=== PATIENT | male | born 1985 | race Caucasian/White ===

== ENCOUNTER 2020-04-30 14:08 | Emergency (ER) | payer BC, MEDICARE ==
[~2020-04-30] VITALS: Ht 172.7 cm; Wt 80.0 kg
[~2020-04-30 14:08] MED LIST: ALBU18HF2 INH; ASPI-611 PO; BECL7.3A INH; CETI-90 PO; GABA-532 PO; HYDR25CA PO; HYDR25TA4 PO; SERT50TA PO; TRAZ-251 PO
== END 2020-04-30 15:11 | disposition home or self-care (01) ==
LOC: ER 14:09
DX: S50.00XA Contusion of unspecified elbow, initial encounter (principal); I10 Essential (primary) hypertension; J45.909 Unspecified asthma, uncomplicated; K21.9 Gastro-esophageal reflux disease without esophagitis; Z91.81 History of falling; Z88.2 Allergy status to sulfonamides; Z91.030 Bee allergy status; Z79.82 Long term (current) use of aspirin; Z79.899 Other long term (current) drug therapy; W19.XXXA Unspecified fall, initial encounter; Y93.89 Activity, other specified; Y92.89 Other specified places as the place of occurrence of the external cause; Y99.8 Other external cause status
CPT/HCPCS: 73080; 73090; 99284

== ENCOUNTER 2022-03-28 09:43 | Emergency (ER) | payer BC, MEDICARE, MEDICAID ==
[~2022-03-28] VITALS: Ht 172.7 cm; Wt 85.5 kg
[2022-03-28 10:29] VITALS: BP 154/104
== END 2022-03-28 14:03 | disposition home or self-care (01) ==
LOC: ER 09:43
DX: H92.03 Otalgia, bilateral (principal); R42 Dizziness and giddiness; R11.10 Vomiting, unspecified; I10 Essential (primary) hypertension; I25.2 Old myocardial infarction; J45.909 Unspecified asthma, uncomplicated; K21.9 Gastro-esophageal reflux disease without esophagitis; F41.9 Anxiety disorder, unspecified; Z72.89 Other problems related to lifestyle; Z88.2 Allergy status to sulfonamides; Z91.030 Bee allergy status; Z79.82 Long term (current) use of aspirin; Z79.899 Other long term (current) drug therapy
CPT/HCPCS: 99282

== ENCOUNTER 2024-08-15 15:33 | Emergency (ER) | payer MEDICARE, MEDICAID ==
[~2024-08-15] VITALS: Ht 170.2 cm; Wt 85.7 kg
[2024-08-15] MEDS ORDERED: iohexol 350MG/ML 100ml bottle IV ONE (16:03)
[2024-08-15 16:14] LABS: BASOPHILS # (AUTO) 0.1 X10'3 (0-0.2); BASOPHILS % (AUTO) 1.3 % (0-1); EOSINOPHILS # (AUTO) 0.2 X10'3 (0-0.9); EOSINOPHILS % (AUTO) 1.4 % (0-6); HEMATOCRIT 48.2 % (42.0-52.0); HEMOGLOBIN 16.7 g/dl (14.0-17.9); LYMPHOCYTES % (AUTO) 17.8 % (21-51); MEAN CORPUSCULAR HEMOGLOBIN 29.3 PG (27.0-31.0); MEAN CORPUSCULAR HGB CONC 34.5 g/dL (33.0-36.5); MEAN CORPUSCULAR VOLUME 84.8 FL (78-98); MEAN PLATELET VOLUME 6.3 FL (7.4-10.4); MONOCYTES # (AUTO) 0.7 X10'3 (0-0.9); MONOCYTES % (AUTO) 5.8 % (2-12); NEUTROPHILS # (AUTO) 8.3 X10'3 (1.8-7.7); NEUTROPHILS % (AUTO) 73.7 % (42-75); PLATELET COUNT 305 X10'3 (140-440); RED BLOOD COUNT 5.69 X10'6 (4.70-6.10); RED CELL DISTRIBUTION WIDTH 13.6 % (11.5-14.5); WHITE BLOOD COUNT 11.3 X10'3 (4.5-11.0)
[2024-08-15 16:27] LABS: INR 1.1 INR; PROTHROMBIN TIME 10.8 SECONDS (9.0-12.0)
[2024-08-15] MEDS: ondansetron/PF 4mg/2ml inj IV ONE (16:56)
[2024-08-15] MEDS: HYDROmorphone 1 mg/ml syringe IV ONE (16:56)
[2024-08-15 17:01] LABS: ALANINE AMINOTRANSFERASE 44 U/L (12-78); ALBUMIN 4.4 G/DL (3.4-5.0); ALBUMIN/GLOBULIN RATIO 1.4 (1.1-1.5); ALKALINE PHOSPHATASE 105 IU/L (46-116); ANION GAP 10 (8-16); ASPARTATE AMINO TRANSFERASE 19 U/L (10-37); BILIRUBIN,TOTAL 0.6 MG/DL (0.1-1.0); BLOOD UREA NITROGEN 14 MG/DL (7-18); BUN/CREATININE RATIO 12.5 (10.0-20.0); CALCIUM 9.1 MG/DL (8.5-10.1); CHLORIDE 104 MMOL/L (99-107); CREATININE 1.12 MG/DL (0.60-1.10); ETHANOL < 10 MG/DL (<10); GLUCOSE 96 MG/DL (70-104); LIPASE 23 U/L (16-77); MAGNESIUM 2.1 MG/DL (1.5-2.4); POTASSIUM 3.8 MMOL/L (3.5-5.1); SODIUM 139 MMOL/L (135-145); TOTAL CARBON DIOXIDE 24.9 MMOL/L (24-32); TOTAL PROTEIN 7.5 G/DL (6.4-8.2); eCRCL 82 ML/MIN; eGFR 73 ML/MIN
[2024-08-15] MEDS: TETanus/Pertussis (Acell)/Diphther VAC/PF (Tdap-Adult) 0.5ml syringe IMVAC ONE (18:05)
[2024-08-15 18:07] VITALS: BP 134/89; PULSE 79; RESP 15; TEMP 98.7; O2SAT 98
== END 2024-08-15 18:24 | disposition home or self-care (01) ==
LOC: ER 15:34
DX: S80.811A Abrasion, right lower leg, initial encounter (principal); M54.2 Cervicalgia; M25.531 Pain in right wrist; I10 Essential (primary) hypertension; J45.909 Unspecified asthma, uncomplicated; Z88.2 Allergy status to sulfonamides; Z88.8 Allergy status to other drugs, medicaments and biological substances; Z91.030 Bee allergy status; W14.XXXA Fall from tree, initial encounter; Y92.009 Unspecified place in unspecified non-institutional (private) residence as the place of occurrence of the external cause; Y93.H2 Activity, gardening and landscaping; Y99.8 Other external cause status
CPT/HCPCS: 36415; 70450; 71250; 72125; 73090; 73110; 73130; 73590; 74176; 80053; 83605; 83690; 83735; 84484; 85025; 85610; 86885; 86900; 86901; 90715; 96374; 96375; 99285; G0008; G0480; J1171; J2405; L0172; Q9967; 80320; 90471